=== PATIENT | female | born 1980 | race Asian ===

== ENCOUNTER → 2016-08-17 | Outpatient (CLI) | payer OTHER ==
--- NOTE | 2016-08-17 10:29 | US ---
August 17, [address] Quarles Thank you for allowing us to see your patient regarding growth restriction. As you know she is a 36 year-old 1, para 0. Her due date is 09/07/2016 which is based on 9 week ultrasound. Her current gestational age based on this dating is 37 weeks 0 days. Number of fetuses: 1 Placental location: fundal Cord Insertion: Central presentation: cephalic Cervix: 3.6 cm TODD of 4.4 cm OLIGO The adnexa were evaluated. No pathology was seen. Right ovary seen Left ovary seen Measurements: Biparietal diameter: 87 mm 35 weeks, 2 days Head circumference: 315 mm 35 weeks, 3 days Abdominal circumference: 285 mm 32 weeks, 4 days Femur length: 64 mm 33 weeks, 0 days Humerus length: 55 mm 31 weeks, 6 days Transcerebellar diameter: 52 mm 37 weeks, 3 days Average ultrasound age: 34 weeks, 1 days Estimated weight: 2133 gm weight percentile: 2 % ANATOMY Upper extremities: Suboptimal Lower extremities: Suboptimal Supratentorial brain: Suboptimal Lateral ventricle: 3.3 mm Posterior fossa: Suboptimal Cisterna Magna: Not measured mm Spine: Suboptimal Nuchal fold: Not applicable Face: Normal nose and lips and palate, suboptimal profile and coronal face Heart: Normal situs, rate, rhythm, axis, four-chamber view, outflows, and intraventricular septum, s uboptimal AA and DA Stomach: Normal Diaphragm: Normal Umbilical cord insertion: suboptimal Right kidney: Normal Left kidney: Normal Bladder: Normal Number of cord vessels: Three. Umbilical artery dopplers UA 1 6.1 elevated UA s 5.4 elevated Impression: This is a 36 year-old 1, para 0 at 37 weeks, 0 days gestation. 1. SIUP with biometry NOT cw ga of 37 weeks. Low fluid. Limited anatomy by gestational age. 2. IUGR/oligo with elevated dopplers. She reports good movement. I have spoke with Dr Antonio and r ecommended delivery within 24 hrs. I reviewed risk of NICU admission at this size and gestational age but explained that the risk of ongoing is IUFD. All questions answered. Thank you for allowing me to see your patient. Approximately 15 minutes was spent with the patient a nd 15 minutes were spent discussing her issues. Ana Tate MD Diagnosis Department of Obstetrics and Gynecology [facility]
--- NOTE | 2016-08-17 15:06 | US ---
Complete Detailed Obstetrical Sonography Clinical History: 36-year-old female who is at 37 weeks gestation, presenting for anatomic surv ey and biometry to assess intrauterine growth restriction. Umbilical vascular Doppler is also r equested. TECHNIQUE: A curvilinear 5 MHz transducer was used to sonographically evaluate the fetus and the plac enta. M-mode Doppler is used. Additionally, umbilical venous and arterial color and spectral Doppler is utilized. Cine clips were acquired through the outflow tracts. Dr. Ana Tate is present. Comparison Study: None currently available. LMP: 12/02/2015, indicating an age of 37 weeks 0 days, and an estimated date of delivery of 09/07/2016. FINDINGS: There is a single viable intrauterine gestation with the fetus vertex in presentation. Ther e is a three-vessel cord with a normal central cord insertion. The heart rate is 150 bpm. The m aternal cervical length is normal, measuring 3.7 cm. The maternal right ovary measures 3.3 x 2.3 x 2. 2 cm, and the maternal left ovary measures 3.4 x 1.3 x 2.4 cm. There is oligohydramnios with an amnio tic fluid index of only 4.4 cm, and a maximal vertical pocket of 2.4 cm. There is limited assessment of the brain, with a lateral ventricular diameter of 3.4 mm. The cisterna magna is not measured. There is also suboptimal assessment of the spine. There is a normal appearanc e to the nasal-labial anatomy and alveolar ridge, although there is a suboptimal sagittal and c oronal facial profile. There is a 4 chambered heart with outflow tracts and interventricular septum, but suboptimal assessment of the aortic and ductal arch. The stomach is normal. The diaphragm is inta ct. The right and left kidneys and urinary bladder are normal. There is suboptimal assessment of the upper and lower extremities. Umbilical vascular Doppler assessment: The first umbilical artery has an S:D ratio of 6.1, and the se cond umbilical artery has a SD ratio of 5.4, each of which is abnormally elevated. There is no revers al of end-diastolic flow. There is no umbilical venous pulsatility. biometry is as follows: The biparietal diameter is 87 mm, corresponding to an age of 35 weeks 2 days +/- 3 weeks 1 day, which is at the 17th percentile. The head circumference is 315 mm, corresponding to an age of 35 weeks 3 days +/- 3 weeks 0 days, whic h is at the 3rd percentile. The abdominal circumference is 285 mm, corresponding to an age of 32 weeks 4 days +/- 3 weeks 0 days, which is less than 2nd percentile. Femur length is 64 mm, corresponding to an age of 33 weeks 0 days +/- 3 weeks 0 days, which is less t dash 2nd percentile. The humeral length is 55 mm corresponding to an age of 31 weeks 6 days. Transcerebellar diameter is 52 mm, corresponding to an age of 37 weeks 3 days +/- 1 week 5 days for a composite gestational age of 34 weeks 1 day, which is 3 weeks lagging from that anticipated by menst rual dating. The estimated weight is 2133 gm +/- 311 gm which is 4 lbs. 11 oz. +/- 11 ounces which is only a t the 2nd percentile. The head circumference to abdominal discomfort ratio is 1.11, which is elevated . The femur length to biparietal diameter ratio is normal range measuring 73%, and the femur length t o abdominal circumference ratio is in normal range measuring 22%. IMPRESSION: There is a single viable intrauterine gestation with intrauterine growth restriction, destiny gohydramnios, and elevated umbilical vascular Doppler assessment. Please review Dr. Tate's separate assessments and specific recommendations in this high risk pregna ncy.
== END ==
LOC: FIMAGING 07:53
PROVIDERS: ATTEND Student in an Organized Health Care Education/Training Program
DX: O36.5930 Maternal care for other known or suspected poor fetal growth, third trimester, not applicable or unspecified (principal); Z3A.37 37 weeks gestation of pregnancy